=== PATIENT | male | born 1945 ===

== ENCOUNTER → 2017-05-29 | Emergency (ER) | payer OTHER ==
[~2017-05-29] VITALS: Ht 185.4 cm; Wt 93.0 kg
[~2017-05-29] MED LIST: BENADRYL25 MG PO; COZAAR100 MG; LEVAQUIN750 MG PO; MEDROL8 MG PO; PEPCID40 MG PO; PROTONIX40 MG PO
== END | disposition home or self-care (01) ==
LOC: ER 06:35
DX: K52.89 Other specified noninfective gastroenteritis and colitis (principal)

== ENCOUNTER 2019-05-24 03:23 | Inpatient (IN) | payer OTHER ==
[~2019-05-24] VITALS: Ht 185.4 cm; Wt 102.1 kg
[2019-05-24] MEDS ORDERED: METFORMIN HCL500 MG (03:46)
[2019-05-24] MEDS ORDERED: ENALAPRIL MALEAT5 MG PO (03:46)
--- NOTE | 2019-05-24 03:47 | NUR ---
PTE REFIRE QUE EL JANNET ESTUVO TRABAJANDO EN YOUNG CASA CON UN TALADRO Y REALIZO MUCHO FUERZA, Y LUEGO SALIO A CORRER, Y COMENZO A SENTIR DOLOR EN EL AREA DE PECHO Y NAUSEA,PTE REFIERE QUE TIENE DOLOR EN EL AREA DEL ESTERNON THERESA ELIZALDE TENIDO APROXIMADAMENTE MAS DE 10 VOMITOS,PTE REFIERE QUE CUANDO VOMITA SIENTE ALIVIO AL MOLESTIA EN EL PECHO.
--- NOTE | 2019-05-24 03:50 | NUR ---
SE RECIBE PTE ALERTA Y ORIENTADO X 3 ESFERAS DEL AREA DE TRIGE A LA UNIDAD DE DOLOR DE PECHO EN COMPANIA DE FAMILIAR. SE OBSERVA BUEN PATRON RESPIRATORIO. SE CONECTA PTE A MONITOR CARDIACO Y OXIMETRIA DE PULSO. EVALUA PTE. SE ORIENTA A PTE SOBRE TX MEDICO. PTE Y FAMILIAR REFIEREN COMPRENDER. SE COLOCA CANULA NASAL A 3LTS. SE COLECTAN MUESTRAS DE LABORATORIOS BAJO MEDIDAS ASEPTICAS. SE CANALIZA A PTE EN BRAZO Y ANTEBRAZO DERECHO CON ANGIO #[id number], AREAS LIBRES DE EDEMA Y ERITEMA. SE ADMINISTRA TRIDIL 50MG/250ML BAJANDO A 3ML/HR Y ASPIRINA 325MG PO JUAN ORDEN MEDICA. PTE PRESENTA 180/100MMHG Y SE QUEJA DE ARDOR EN EL PECHO. SE NOTIFICA A EL CUAL ORDENA ADMINISTRAR MORFINA 4MG IV STAT Y AUMENTAR TRIDIL A 5ML/HR. SE EJECUTAN ORDENES MEDICAS Y SE ORIENTA A PTE Y FAMILIAR LOS CUALES REFIEREN COMPRENDER. SE MANTIENE BAJO OBSERVACION POR CAMBIOS.
--- NOTE | 2019-05-24 04:59 | NUR ---
PTE SE QUEJA DE ACIDEZ. SE NOTIFICA A EL CUAL ORDENA ADMINISTRAR PEPCID 20MG IV STAT. SE ADMINISTRA MEDICAMENTO JUAN ORDEN MEDICA. SE MANTIENE EN OBSERVACION POR CAMBIOS EN CONDICION MEDICA.
--- NOTE | 2019-05-24 05:42 | NUR ---
PERSONAL DE YULIA X REALIZA YULIA X ORDENADOS.
--- NOTE | 2019-05-24 07:18 | NUR ---
SE RECIBE PTE EN CAMA CON BARANADAS ELEVADAS CON IVFS PATENTE, DEACON DE EDEMA Y ERITEMA BAJANDO TRIDIL AT 3ML/HR , ALERTA, ORIENTADO POR NESHA. ACOMPANADO POR FAMILIAR, CONECTADO A MONITOR CARDIACO. NO PRESENTA DOLOR DE PECHO AL MOMENTO. SE MANTIENE EN OBSERVACION Y PENDIENTE A CONSULTA CON Y DR.REYNEIRO LYNN.
--- NOTE | 2019-05-24 08:26 | NUR ---
SE LE NOTIFICA AL PTE REFIERE TENER NAUSEA Y LE ORDENA MEDICAMENTO Y SE LE ADMINISTRA. SE MANTIENE EN OBSERVACION.
[2019-05-24] MEDS ORDERED: ATORVASTATIN CA10 MG PO (15:15)
[2019-05-24] MEDS ORDERED: METFORMIN HCL500 M4 PO (15:16)
[2019-05-24] MEDS ORDERED: PANTOPRAZOLE SO40 MG PO (15:16)
== END 2019-05-25 10:58 | disposition designated cancer center or children's hospital (05) | DRG 282 ==
LOC: ER 03:23 → SURH 13:48
PROVIDERS: ADMIT Internal Medicine
PROC: B246ZZZ Ultrasonography of Right and Left Heart (ICD-10-PCS; principal; 2019-05-24)
PROC: 4A12X4Z Monitoring of Cardiac Electrical Activity, External Approach (ICD-10-PCS; 2019-05-24)
DX: I21.4 Non-ST elevation (NSTEMI) myocardial infarction (principal); I10 Essential (primary) hypertension; I08.1 Rheumatic disorders of both mitral and tricuspid valves; E11.65 Type 2 diabetes mellitus with hyperglycemia; Z79.4 Long term (current) use of insulin

== ENCOUNTER 2019-07-16 02:08 | Emergency (ER) | payer OTHER ==
[~2019-07-16] VITALS: Ht 185.4 cm; Wt 93.0 kg
[~2019-07-16 02:08] MED LIST changes: +ATORVASTATIN CA10 MG PO; +ENALAPRIL MALEAT5 MG PO; +METFORMIN HCL500 M4 PO; +METFORMIN HCL500 MG; +PANTOPRAZOLE SO40 MG PO
[2019-07-16] MEDS ORDERED: PROTONIX40 MG PO (05:50)
[2019-07-16] MEDS ORDERED: VISTARIL50 MG PO (05:50)
[2019-07-16] MEDS ORDERED: PEPCID40 MG PO (05:50)
== END 2019-07-16 06:16 ==
LOC: ER 02:08
DX: K21.9 Gastro-esophageal reflux disease without esophagitis (principal); F06.4 Anxiety disorder due to known physiological condition

== ENCOUNTER 2019-07-23 07:36 | Outpatient (CLI) | payer OTHER ==
[~2019-07-23 07:36] MED LIST changes: +VISTARIL50 MG PO
== END 2019-07-23 07:44 | disposition home or self-care (01) ==
LOC: RX STUDY 07:36
PROVIDERS: ATTEND Internal Medicine
DX: R10.13 Epigastric pain (principal); R63.4 Abnormal weight loss

== ENCOUNTER 2020-08-14 08:32 | Emergency (ER) | payer OTHER ==
[~2020-08-14] VITALS: Ht 185.4 cm; Wt 90.7 kg
[2020-08-14] MEDS ORDERED: DEXILANT60 MG (08:50)
[2020-08-14] MEDS ORDERED: TOPROL XL25 M1 (08:50)
[2020-08-14] MEDS ORDERED: VIAGRA100 MG (08:51)
[2020-08-14] MEDS ORDERED: [UNRECOGNIZED DRUG - OTHER] (08:51)
[2020-08-14] MEDS ORDERED: ZESTRIL10 M1 (08:51)
[2020-08-14] MEDS ORDERED: PLAVIX75 MG (08:52)
[2020-08-14] MEDS ORDERED: DICLOFENAC POTA50 MG PO (14:31)
[2020-08-14] MEDS ORDERED: BACTRIM DS TAB1 EACH PO (14:31)
== END 2020-08-14 14:55 | disposition home or self-care (01) ==
LOC: ER 08:32
DX: S60.413A Abrasion of left middle finger, initial encounter (principal); L03.012 Cellulitis of left finger; R60.0 Localized edema; W22.8XXA Striking against or struck by other objects, initial encounter; Y93.H9 Activity, other involving exterior property and land maintenance, building and construction; Y92.89 Other specified places as the place of occurrence of the external cause; Y99.8 Other external cause status